=== PATIENT | male | born 1955 | race Caucasian/White ===

== ENCOUNTER 2024-11-26 06:42 | Inpatient (IN) | payer OTHER ==
[~2024-11-26] VITALS: Ht 177.8 cm; Wt 101.8 kg
[~2024-11-26 06:42] MED LIST: DOXYCYCLINE HY100 M3 PO; PREDNISONE10 MG PO; SPIRIVA18 MCG PO; VENT7GM INH
[2024-11-26 06:47] VITALS: BP 111/62
[2024-11-26] MEDS ORDERED: IOHEXOL 300 MG/ML 100 ML VIAL IV ONE (07:00)
[2024-11-26 07:10] LABS: HEMATOCRIT 45.1 % (42.0-52.0); MEAN CELL VOLUME 91.7 fl (80.0-94.0); MEAN CORPUSCULAR HGB 30.7 pg (27.0-31.0); MEAN CORPUSCULAR HGB CONC 33.5 g/dl (33.0-37.0); MEAN PLATELET VOLUME 9.1 fl (9.6-12.3); PLATELET COUNT AUTOMATED 397 10*3/uL (130-400); RED BLOOD COUNT 4.92 10*6/uL (4.50-5.90); RED CELL DISTRI WIDTH 12.9 % (0-14.5); WHITE BLOOD COUNT 32.2 10*3/uL (4.8-10.8)
[2024-11-26 07:11] LABS: MANUAL DIFF REFLEX YES
[2024-11-26 07:15] VITALS: BP 114/79
[2024-11-26 07:30] LABS: TOTAL PROTEIN 6.5 gm/dL (6.0-8.0)
[2024-11-26 07:41] LABS: BASOPHILS 1 % (0-1); POLYCHROMASIA SLIGHT; TOTAL CELLS COUNTED 100 #CELLS; VACUOLATION OF NEUTROPHILS SLIGHT
[2024-11-26 07:42] LABS: BURR CELLS FEW; PLATELET SUFFICIENCY NORMAL (NORMAL)
[2024-11-26] MEDS ORDERED: SODIUM CHLORIDE 0.9% 1,000 ML IV ONE ×3 (08:05)
[2024-11-26] MEDS ORDERED: cefTRIAXone Sodium 1 GM/10 ML SYR IV ONE (08:35)
[2024-11-26] MEDS ORDERED: AZITHROMYCIN 250 ML IV ONE (08:35)
[2024-11-26 09:28] LABS: BILIRUBIN Negative (Negative); BLOOD Trace-Lysed (Negative); CLARITY Clear (Clear); COLOR Yellow (Yellow); GLUCOSE Negative (Negative); KETONE Negative (Negative); LEUKO ESTERASE Negative (Negative); NITRITE Negative (Negative); SPECIFIC GRAVITY 1.015 (1.001-1.030); UROBILINOGEN 0.2 E.U./dl (0.0-1.0)
[2024-11-26 09:35] LABS: BACTERIA TRACE; MUCOUS TRACE
[2024-11-26] MEDS ORDERED: HYDROmorphone Hydrochloride 1 MG/ML SYR IV ONE (10:25)
[2024-11-26] MEDS ORDERED: ACETAMINOPHEN 325 MG TAB PO PRN (12:05)
[2024-11-26] MEDS ORDERED: MORPHINE Sulfate 2 MG/ML SYR IV PRN (12:05)
[2024-11-26] MEDS ORDERED: Acetaminophen/Hydrocodone 5 MG/325 MG TABLET PO PRN (12:05)
[2024-11-26] MEDS ORDERED: BISACODYL 5 MG TAB PO PRN (12:05)
[2024-11-26] MEDS ORDERED: Ondansetron Hydrochloride 4 MG/2 ML VIAL IV PRN (12:05)
[2024-11-26] MEDS ORDERED: BISACODYL 10 MG SUPP R PRN (12:05)
[2024-11-26] MEDS ORDERED: TEMAZEPAM 15 MG CAP PO PRN (12:05)
[2024-11-26] MEDS ORDERED: ACETAMINOPHEN 650 MG SUPP R PRN (12:05)
[2024-11-26] MEDS ORDERED: SODIUM CHLORIDE 0.9% 1,000 ML IV SCH (12:10)
[2024-11-26] MEDS ORDERED: Iodixanol 320 100 ML VIAL IV ONE (13:55)
[2024-11-26] MEDS ORDERED: SODIUM CHLORIDE 0.9% 100 ML BAG IV ONE (13:55)
[2024-11-26] MEDS ORDERED: VANCOMYCIN/WATER FOR INJ (PEG) 300 ML IV SCH (14:00)
[2024-11-26 14:30] VITALS: BP 131/74
[2024-11-26] MEDS ORDERED: Albuterol Sulf/Ipratropium 3 ML VIAL NEB PRN (15:10)
[2024-11-26] MEDS ORDERED: Meropenem 50 ML IV SCH (18:00)
[2024-11-26 20:00] VITALS: BP 111/54
[2024-11-27] VITALS: BP 118/76
[2024-11-27 06:24] LABS: HEMATOCRIT 41.6 % (42.0-52.0); MEAN CORPUSCULAR HGB 31.2 pg (27.0-31.0); MEAN CORPUSCULAR HGB CONC 32.9 g/dl (33.0-37.0); MEAN PLATELET VOLUME 9.6 fl (9.6-12.3); PLATELET COUNT AUTOMATED 332 10*3/uL (130-400); RED BLOOD COUNT 4.39 10*6/uL (4.50-5.90); RED CELL DISTRI WIDTH 13.2 % (0-14.5); WHITE BLOOD COUNT 27.5 10*3/uL (4.8-10.8)
[2024-11-27 06:40] LABS: POTASSIUM 4.4 mmol/L (3.4-5.1); TOTAL PROTEIN 5.7 gm/dL (6.0-8.0)
[2024-11-27 06:54] LABS: MANUAL DIFF REFLEX YES; MEAN CELL VOLUME 94.8 fl (80.0-94.0)
[2024-11-27 07:03] LABS: TOTAL CELLS COUNTED 100 #CELLS
[2024-11-27 07:04] LABS: BURR CELLS MODERATE; PLATELET SUFFICIENCY NORMAL (NORMAL)
[2024-11-27 08:00] VITALS: BP 121/59
[2024-11-27] MEDS ORDERED: fentaNYL CITRATE 100 MCG/2 ML VIAL IV PRN (09:45)
[2024-11-27] MEDS ORDERED: methylPREDNISolone sod succ 40 MG VIAL IV SCH (10:00)
[2024-11-27] MEDS ORDERED: Enoxaparin Sodium 40 MG/0.4 ML SYR SC SCH (10:00)
[2024-11-27 12:00] VITALS: BP 134/87
[2024-11-27] MEDS ORDERED: SODIUM CHLORIDE 0.9% 1,000 ML IV SCH (12:00)
[2024-11-27] MEDS ORDERED: METHYLPREDNISOL40 MG IV (14:04)
[2024-11-27 16:00] VITALS: BP 131/79; BP 134/87
== END 2024-11-27 18:30 | disposition short-term general hospital (02) | DRG 871 ==
LOC: ED 06:42 → EDHOLD 11:51 → 4E 11:51
PROVIDERS: Emergency Medicine; Internal Medicine; Student in an Organized Health Care Education/Training Program; ADMIT Internal Medicine; ATTEND Internal Medicine
DX: A41.9 Sepsis, unspecified organism (principal); J69.0 Pneumonitis due to inhalation of food and vomit; N17.0 Acute kidney failure with tubular necrosis; K85.00 Idiopathic acute pancreatitis without necrosis or infection; C34.91 Malignant neoplasm of unspecified part of right bronchus or lung; E44.0 Moderate protein-calorie malnutrition; N30.00 Acute cystitis without hematuria; Z66 Do not resuscitate; Z96.643 Presence of artificial hip joint, bilateral; F17.210 Nicotine dependence, cigarettes, uncomplicated; R65.20 Severe sepsis without septic shock; E27.8 Other specified disorders of adrenal gland; R91.8 Other nonspecific abnormal finding of lung field; E83.52 Hypercalcemia; J44.9 Chronic obstructive pulmonary disease, unspecified; R73.9 Hyperglycemia, unspecified; Z71.6 Tobacco abuse counseling; Z79.899 Other long term (current) drug therapy; Z79.01 Long term (current) use of anticoagulants; Z79.2 Long term (current) use of antibiotics; Z68.32 Body mass index [BMI] 32.0-32.9, adult